=== PATIENT | male | born 1945 | race Two or more races ===

== ENCOUNTER → 2024-01-15 | Outpatient (CLI) | payer OTHER, MEDICAID ==
[2024-01-15 08:40] LABS: Alanine Aminotransferase 13 U/L (7-40); Albumin 3.8 g/dL (3.2-4.8); Alkaline Phosphatase 96 U/L (46-116); Anion Gap 3 (5-15); Aspartate Aminotransferase 13 U/L (13-40); BUN/Creatinine Ratio 11.7 (10.0-20.0); Bilirubin, Total 0.5 mg/dL (0.2-1.0); Blood Urea Nitrogen 14 mg/dL (9-23); Calcium 9.2 mg/dL (8.7-10.4); Carbon Dioxide 28 mmol/L (20-30); Chloride 107 mmol/L (98-107); Cholesterol 131 mg/dL (< 200); Glucose 166 mg/dL (74-106); HDL Cholesterol 32 mg/dL (40-59); LDL Cholesterol 73 mg/dL (< 100); Sodium 138 mmol/L (136-145); Total Protein 6.3 g/dL (5.7-8.2); Triglycerides 164 mg/dL (< 150)
[2024-01-15 10:07] LABS: Potassium 5.6 mmol/L (3.5-5.1)
== END | disposition home or self-care (01) ==
LOC: LAB 07:46
DX: E11.21 Type 2 diabetes mellitus with diabetic nephropathy (principal); E78.00 Pure hypercholesterolemia, unspecified
CPT/HCPCS: 36415; 80053; 80061; 83036

== ENCOUNTER → 2024-06-13 | Outpatient (CLI) | payer OTHER, MEDICAID ==
[2024-06-13 08:48] LABS: Basophils # (auto) 0.1 10 ^3/uL (0-0.2); Basophils % (auto) 1.1 % (0.0-2.0); Eosinophils # (auto) 0.4 10 ^3/uL (0-0.8); Hematocrit 44.6 % (41.0-53.0); Hemoglobin 14.6 g/dL (13.5-17.5); Lymphocytes # (auto) 2.2 10 ^3/uL (0.4-5.4); Lymphocytes % (auto) 24.4 % (10.0-50.0); Mean Corpuscular Hemoglobin 27.9 pg (28.0-32.0); Mean Corpuscular Hgb Conc. 32.8 g/dL (32.0-36.0); Monocytes # (auto) 0.4 10 ^3/uL (0-1.3); Monocytes % (auto) 4.2 % (0.0-12.0); Neutrophils # (auto) 5.8 10 ^3/uL (1.6-8.6); Neutrophils % (auto) 65.3 % (37.0-80.0); Platelet Count (auto) 326 10^3/uL (140-450); Red Blood Cells 5.25 10^6/uL (4.5-5.90); Red Cell Distribution Width 14.9 % (11.8-14.3); White Blood Cell 8.9 10^3/uL (4.4-10.8)
[2024-06-13 09:11] LABS: Creatinine, Urine 96.03 mg/dL (30.0-125.0)
[2024-06-13 09:17] LABS: Alanine Aminotransferase 13 U/L (7-40); Albumin 3.8 g/dL (3.2-4.8); Alkaline Phosphatase 105 U/L (46-116); Anion Gap 6 (5-15); Aspartate Aminotransferase 14 U/L (13-40); Bilirubin, Total 0.4 mg/dL (0.2-1.0); Blood Urea Nitrogen 23 mg/dL (9-23); Calcium 9.7 mg/dL (8.7-10.4); Carbon Dioxide 25 mmol/L (20-31); Chloride 107 mmol/L (98-107); Cholesterol 122 mg/dL (< 200); LDL Cholesterol 68 mg/dL (< 100); Potassium 5.1 mmol/L (3.5-5.1); Sodium 138 mmol/L (136-145)
[2024-06-13 09:18] LABS: Total Protein 6.8 g/dL (5.7-8.2)
[2024-06-13 09:22] LABS: Glucose 170 mg/dL (74-106); HDL Cholesterol 33 mg/dL (40-59); Triglycerides 172 mg/dL (< 150)
[2024-06-13 09:38] LABS: Urine Blood Negative /uL (Negative); Urine Clarity Clear (Clear); Urine Color Light-Yellow (Yellow); Urine Protein, UAD 1+ (Negative); Urine Specific Gravity 1.018 (1.001-1.035); Urine Urobilinogen Normal (Negative); Urine pH 5.5 (5.0-9.0)
== END | disposition home or self-care (01) ==
LOC: LAB 08:18
DX: N39.0 Urinary tract infection, site not specified (principal); E03.8 Other specified hypothyroidism; R80.9 Proteinuria, unspecified; E78.00 Pure hypercholesterolemia, unspecified; D64.9 Anemia, unspecified; R19.5 Other fecal abnormalities; E11.69 Type 2 diabetes mellitus with other specified complication
CPT/HCPCS: 36415; 80053; 80061; 81003; 82043; 82570; 83036; 84436; 84443; 84480; 85025

== ENCOUNTER → 2024-06-17 | Outpatient (CLI) | payer OTHER, MEDICAID | END | disposition home or self-care (01) | LOC: LAB 13:12 | DX: R19.5 Other fecal abnormalities (principal); E11.69 Type 2 diabetes mellitus with other specified complication | CPT/HCPCS: 82270 ==

== ENCOUNTER → 2024-07-29 | Outpatient (CLI) | payer OTHER, MEDICAID ==
[2024-07-29 11:10] LABS: Urine Bacteria None Seen /hpf (None Seen); Urine Blood TRACE /uL (Negative); Urine Clarity Clear (Clear); Urine Color Light-Yellow (Yellow); Urine Protein, UAD 2+ (Negative); Urine Specific Gravity 1.017 (1.001-1.035); Urine Squamous Epithelial Cell None Seen /hpf (<5); Urine Urobilinogen Normal (Negative); Urine WBC < 1 /HPF (0-3); Urine pH 5.5 (5.0-9.0)
[2024-07-29 11:11] LABS: Basophils # (auto) 0.1 10 ^3/uL (0-0.2); Eosinophils # (auto) 0.4 10 ^3/uL (0-0.8); Eosinophils % (auto) 3.3 % (0.0-7.0); Hematocrit 45.1 % (41.0-53.0); Hemoglobin 14.5 g/dL (13.5-17.5); Lymphocytes # (auto) 1.9 10 ^3/uL (0.4-5.4); Lymphocytes % (auto) 16.1 % (10.0-50.0); Mean Corpuscular Hemoglobin 27.3 pg (28.0-32.0); Mean Corpuscular Hgb Conc. 32.2 g/dL (32.0-36.0); Mean Corpuscular Volume 84.6 fL (80.0-100.0); Monocytes # (auto) 0.6 10 ^3/uL (0-1.3); Monocytes % (auto) 5.2 % (0.0-12.0); Neutrophils # (auto) 8.9 10 ^3/uL (1.6-8.6); Neutrophils % (auto) 74.4 % (37.0-80.0); Platelet Count (auto) 326 10^3/uL (140-450); Red Blood Cells 5.33 10^6/uL (4.5-5.90); Red Cell Distribution Width 14.6 % (11.8-14.3)
[2024-07-29 11:48] LABS: Alanine Aminotransferase 16 U/L (7-40); Alkaline Phosphatase 100 U/L (46-116); Anion Gap 9 (5-15); BUN/Creatinine Ratio 12.1 (10.0-20.0); Blood Urea Nitrogen 13 mg/dL (9-23); Calcium 9.1 mg/dL (8.7-10.4); Carbon Dioxide 24 mmol/L (20-31); Chloride 106 mmol/L (98-107); LDL Cholesterol 74 mg/dL (< 100); Potassium 3.9 mmol/L (3.5-5.1); Sodium 139 mmol/L (136-145); Triglycerides 118 mg/dL (< 150)
[2024-07-29 11:49] LABS: Albumin 3.9 g/dL (3.2-4.8)
[2024-07-29 11:50] LABS: Bilirubin, Total 0.5 mg/dL (0.2-1.0); Cholesterol 130 mg/dL (< 200); Total Protein 6.5 g/dL (5.7-8.2)
[2024-07-29 11:51] LABS: Creatinine, Urine 94.79 mg/dL (30.0-125.0)
[2024-07-29 11:57] LABS: Aspartate Aminotransferase 11 U/L (13-40); Glucose 117 mg/dL (74-106); HDL Cholesterol 38 mg/dL (40-59)
== END | disposition home or self-care (01) ==
LOC: LAB 10:32
DX: N39.0 Urinary tract infection, site not specified (principal); D64.9 Anemia, unspecified; E78.00 Pure hypercholesterolemia, unspecified; E03.8 Other specified hypothyroidism; R80.9 Proteinuria, unspecified; R19.5 Other fecal abnormalities; E11.21 Type 2 diabetes mellitus with diabetic nephropathy
CPT/HCPCS: 36415; 80053; 80061; 81001; 82043; 82570; 83036; 84436; 84443; 84480; 85025

== ENCOUNTER 2024-12-10 06:32 | Outpatient (CLI) | payer OTHER, MEDICAID ==
[2024-12-10 07:43] LABS: Albumin 3.7 g/dL (3.2-4.8); Alkaline Phosphatase 86 U/L (46-116); Anion Gap 8 (5-15); BUN/Creatinine Ratio 15.7 (10.0-20.0); Blood Urea Nitrogen 19 mg/dL (9-23); Calcium 9.0 mg/dL (8.7-10.4); Carbon Dioxide 25 mmol/L (20-31); Potassium 4.5 mmol/L (3.5-5.1); Sodium 140 mmol/L (136-145); Total Protein 6.3 g/dL (5.7-8.2)
[2024-12-10 07:44] LABS: Cholesterol 114 mg/dL (< 200)
[2024-12-10 07:47] LABS: Alanine Aminotransferase 9 U/L (7-40); Bilirubin, Total 0.3 mg/dL (0.2-1.0); Chloride 107 mmol/L (98-107); Glucose 155 mg/dL (74-106); HDL Cholesterol 32 mg/dL (40-59); Triglycerides 160 mg/dL (< 150)
== END 2024-12-10 19:11 | disposition home or self-care (01) ==
LOC: LAB 06:32
DX: E11.69 Type 2 diabetes mellitus with other specified complication (principal); E78.00 Pure hypercholesterolemia, unspecified; E75.6 Lipid storage disorder, unspecified
CPT/HCPCS: 36415; 80053; 80061; 83036

== ENCOUNTER 2025-01-02 06:47 | Outpatient (CLI) | payer OTHER, MEDICAID ==
[2025-01-02 07:49] LABS: Alanine Aminotransferase 12 U/L (7-40); Albumin 4.0 g/dL (3.2-4.8); Alkaline Phosphatase 99 U/L (46-116); Anion Gap 7 (5-15); BUN/Creatinine Ratio 14.8 (10.0-20.0); Blood Urea Nitrogen 18 mg/dL (9-23); Calcium 9.8 mg/dL (8.7-10.4); Carbon Dioxide 30 mmol/L (20-31); Chloride 103 mmol/L (98-107); Cholesterol 104 mg/dL (< 200); Sodium 140 mmol/L (136-145); Total Protein 6.9 g/dL (5.7-8.2); Triglycerides 136 mg/dL (< 150)
[2025-01-02 07:50] LABS: Bilirubin, Total 0.2 mg/dL (0.2-1.0); Glucose 107 mg/dL (74-106); HDL Cholesterol 29 mg/dL (40-59); Potassium 5.1 mmol/L (3.5-5.1)
[2025-01-02 11:53] LABS: Uric Acid 6.4 mg/dL (3.7-9.2)
== END 2025-01-02 17:00 | disposition home or self-care (01) ==
LOC: LAB 06:47
DX: E78.00 Pure hypercholesterolemia, unspecified (principal); M10.9 Gout, unspecified; Z13.0 Encounter for screening for diseases of the blood and blood-forming organs and certain disorders involving the immune mechanism; E11.21 Type 2 diabetes mellitus with diabetic nephropathy
CPT/HCPCS: 36415; 80053; 80061; 83036; 84550

== ENCOUNTER 2025-01-14 08:11 | Outpatient (CLI) | payer OTHER, MEDICAID ==
[2025-01-14 08:58] LABS: Alanine Aminotransferase 12 U/L (7-40); Alkaline Phosphatase 95 U/L (46-116)
[2025-01-14 08:59] LABS: Albumin 3.9 g/dL (3.2-4.8); Anion Gap 8 (5-15); BUN/Creatinine Ratio 12.4 (10.0-20.0); Bilirubin, Total 0.4 mg/dL (0.2-1.0); Blood Urea Nitrogen 13 mg/dL (9-23); Carbon Dioxide 27 mmol/L (20-31); Cholesterol 126 mg/dL (< 200); Glucose 84 mg/dL (74-106); Potassium 4.2 mmol/L (3.5-5.1); Sodium 142 mmol/L (136-145); Total Protein 6.7 g/dL (5.7-8.2)
[2025-01-14 09:05] LABS: Calcium 8.6 mg/dL (8.7-10.4); Chloride 107 mmol/L (98-107); HDL Cholesterol 34 mg/dL (40-59); Triglycerides 160 mg/dL (< 150)
== END 2025-01-14 17:00 | disposition home or self-care (01) ==
LOC: LAB 08:11
DX: E11.69 Type 2 diabetes mellitus with other specified complication (principal); E78.00 Pure hypercholesterolemia, unspecified; Z13.0 Encounter for screening for diseases of the blood and blood-forming organs and certain disorders involving the immune mechanism
CPT/HCPCS: 36415; 80053; 80061; 83036